=== PATIENT | female | born 1990 | race African-American/Black ===

== ENCOUNTER 2020-01-14 23:39 | Emergency (ER) | payer OTHER, SELFPAY ==
[2020-01-14 23:51] VITALS: BP 110/78; PULSE 68; RESP 17; TEMP 36.3; O2SAT 99
--- NOTE | 2020-01-14 23:55 | ED.URI ---
HPI - URI/Sore Throat General Chief Complaint: Upper Respiratory Infection Stated Complaint: Fatigued, cold sx Time Seen by Provider: 01/14/20 23:50 Source: patient and RN notes reviewed Mode of arrival: ambulatory Limitations: no limitations History of Present Illness HPI Narrative: A 29 y/o female presents to the ED with nasal congestion for the past week. She states that she went to [facility] in [place] last week and ever since has been having worsening nasal congestion and fatigue. She notes that her kid has also had a cough and wheezes, so she decided to come to the ED with him. She denies any fevers, sore throat, ear ache, SOB, cough, N/V/D, or ABD pain. MD elicited complaint: nasal congestion Onset (ago): week(s) (1) Consistency: progressively worsening Context: sick contacts Associated symptoms: other (fatigue) Related Data Allergies Allergy/AdvReac Type Severity Reaction Status Date / Time BLUE CHEESE Allergy Mild Rash Uncoded 11/18/19 18:46 Review of Systems Review of Systems: Narrative: CONSTITUTIONAL: Denies fevers. Reports fatigue. ENT: Denies a sore throat or ear ache. Reports nasal congestion. RESPIRATORY: Denies cough or dyspnea. GASTROINTESTINAL: Denies abdominal pain, nausea, vomiting, or diarrhea. All systems reviewed & are unremarkable except as noted in HPI and below PMFSH Past Medical History Medical History Migraines Surgical History Surgical History History of hip surgery rt hip surgery History of primary section Social History Social History Smoking status: Never smoker Alcohol intake: never Substance use: never Gender identity (if verbalized by the patient): Female Exam Narrative: Exam Narrative: GENERAL: Well-appearing, well-nourished, and in no acute distress. HEAD: Normocephalic, atraumatic. EYES: PERRLA and EOMI. ENT: Nares clear, no rhinorrhea or epistaxis. Mucous membranes moist. NECK: Supple. CHEST: Clear to auscultation. No respiratory distress. HEART: Regular rate and rhythm. No murmur heard. Normal peripheral pulses. ABDOMEN: Soft, nontender, nondistended, normal active bowel sounds. EXTREMITIES: Normal range of motion. No edema. SKIN: Warm, dry, no rash. NEURO: No focal deficits. Alert and oriented X3. Course Course Emergency Course: Patient present with evidence of what is likely viral sinusitis. No fever, shortness of breath, no cough, ear pain or sore throat. Influenza is negative. Laboratory results are not indicated with this. No imaging as patient has no cough or dyspnea. Advised patient symptomatic care, Flonase, [id number] medications. She was then discharged home in stable condition. Vital Signs Vital signs: Vital Signs Temperature 36.3 C L 01/14/20 23:51 Pulse Rate 68 01/14/20 23:51 Respiratory Rate 17 01/14/20 23:51 Blood Pressure 110/78 01/14/20 23:51 Pulse Oximetry 99 01/14/20 23:51 Temperature 36.3 C L 01/14/20 23:51 Pulse Rate 68 01/14/20 23:51 Respiratory Rate 17 01/14/20 23:51 Blood Pressure 110/78 01/14/20 23:51 Pulse Oximetry 98 01/15/20 00:12 MDM - URI/Sore Throat Lab Data Labs: Influenza A Screen Negative Reference Range: Negative Influenza B Screen Negative Reference Range: Negative Discharge Plan Discharge Clinical Impression: Upper respiratory infection Qualifiers: URI type: unspecified viral URI Qualified Code(s): J06.9 - Acute upper respiratory infection, unspecified Patient Disposition: Home, Self-Care Condition: Stable Instructions: Sinusitis (ED), Viral Syndrome (ED) Additional Instructions: Follow up with your primary care physician by phone today to set up for reevaluation in the next 7 days. Go to ER for worsening pain, nausea/vomiting, fever/chills, worsening bleeding, chest pain, shortn
[2020-01-15 00:12] VITALS: O2SAT 98
[2020-01-15 00:48] VITALS: BP 118/88; PULSE 88; RESP 14; O2SAT 98
== END 2020-01-15 00:48 | disposition home or self-care (01) ==
PROVIDERS: Emergency Provider Emergency Medicine
DX: J06.9 Acute upper respiratory infection, unspecified (principal)
CPT/HCPCS: 87804; 99283

== ENCOUNTER 2020-01-16 14:44 | Emergency (ER) | payer OTHER, SELFPAY ==
--- NOTE | ~2020-01-16 | XR_ITS ---
EXAMINATION: XR chest 2V DATE: 01/16/2020 15:21 INDICATION: Shortness of breath TECHNIQUE: Frontal and lateral views of the chest are obtained COMPARISON: None available FINDINGS: The lungs are free of acute opacities. There is no pleural effusion or pneumothorax. The ca rdiomediastinal silhouette is normal. The visualized bones and soft tissues are unremarkable. IMPRESSION: 1. No acute cardiopulmonary abnormality. Reviewed, dictated and finalized at location A.
[2020-01-16 14:46] VITALS: BP 114/74; PULSE 61; RESP 16; TEMP 36.2; O2SAT 98
--- NOTE | 2020-01-16 15:04 | ED.HA ---
HPI - Headache General Chief Complaint: Headache Stated Complaint: headache Time Seen by Provider: 01/16/20 15:03 Source: patient Mode of arrival: ambulatory Limitations: no limitations History of Present Illness HPI Narrative: A 29 y/o female presents to the ED with c/o right sided MENDIETA. Pt states that the MENDIETA started on 01/14/20 and she was evaluated at [place] [facility]. She reports feeling jitty, congestion, and chest tightness, but denies fever, chills, vomiting, numbness, tingling, visual changes, hearing changes, and sweats. At her ED visit she was given nasal spray and Tylenol, but adds that it did not alleviate any of her symptoms. Her son is sick with a cough, but she denies any recent travel. She has no other complaints at this time. MD elicited complaint: headache (right sided) Onset (ago): day(s) (2) Location: right Relieving factors: nothing Associated symptoms: chest pain (tightness) and other (jitty, congestion) Related Data Allergies Allergy/AdvReac Type Severity Reaction Status Date / Time BLUE CHEESE Allergy Mild Rash Uncoded 01/16/20 14:49 Review of Systems Review of Systems: All systems reviewed & are unremarkable except as noted in HPI and below Constitutional: Constitutional: Denies chills and Denies fever(s) Eyes: Eyes: Denies change in vision ENT: Reports nasal congestion and Denies other (Hearing changes) Cardiovascular: Cardiovascular: Reports chest pain (Tightness) and Denies other (Sweats) Gastrointestinal: Gastrointestinal: Denies vomiting Neurologic: Reports headache(s) (right sided), Denies numbness and Denies tingling Psychiatric: Psychiatric: Reports other (Jittery) PMFSH Past Medical History Medical History Migraines Surgical History Surgical History History of hip surgery rt hip surgery History of primary section Social History Social History Smoking status: Never smoker Alcohol intake: never Substance use: never Gender identity (if verbalized by the patient): Female Exam Narrative: Exam Narrative: GENERAL: Well-appearing, well-nourished, and in no acute distress. HEAD: Normocephalic, atraumatic. ENT: Mucous membranes moist. No pharyngeal erythema or tonsillar exudate. TM's normal bilaterally. NECK: Supple. CHEST: Clear to auscultation. No respiratory distress. HEART: Regular rate and rhythm. Normal peripheral pulses. EXTREMITIES: Normal range of motion. No edema. NEURO: Alert and oriented x3. Course Course Emergency Course: X-ray normal. Headache resolved with Toradol. Discharge home. Vital Signs Vital signs: Vital Signs Temperature 97.1 F L 01/16/20 14:46 Pulse Rate 61 01/16/20 14:46 Respiratory Rate 16 01/16/20 14:46 Blood Pressure 114/74 01/16/20 14:46 Pulse Oximetry 98 01/16/20 14:46 Temperature 97.1 F L 01/16/20 16:05 Pulse Rate 61 01/16/20 14:46 Respiratory Rate 16 01/16/20 14:46 Blood Pressure 114/74 01/16/20 14:46 Pulse Oximetry 98 01/16/20 14:46 MDM - Headache Lab Data Labs: UCG Bedside Result Negative Reference Range: Negative Imaging Data Radiologist's impression: ITS Impressions Chest X-Ray 01/16/20 15:37 IMPRESSION: 1. No acute cardiopulmonary abnormality. Discharge Plan Discharge Clinical Impression: Acute viral syndrome Headache Qualifiers: Headache type: unspecified Headache chronicity pattern: unspecified pattern Intractability: not intractable Qualified Code(s): R51 - Headache Patient Disposition: Home, Self-Care Condition: Stable Instructions: Acute Headache (ED) Additional Instructions: Return to the ER if you have fever over 101F, you cannot keep down food/water, you lose consciousness, you cannot breathe, or you have other concerns. Take tylenol as needed for headache. Presc
[2020-01-16] MEDS: KETOROLAC (*BKC) 60 MG/2 ML VIAL IM (15:24)
--- NOTE | 2020-01-16 15:43 | ECG_ITS ---
Measurements Intervals [place] Rate: 60 P: 38 HI: 163 QRS: 15 QRSD: 92 T: 28 QT: 402 QTc: 404 Interpretive Statements SINUS RHYTHM BORDERLINE T WAVE ABNORMALITY- ANTERIOR LEADS BASELINE ARTIFACT- I, II, III, AVR, AVL, AVF BORDERLINE ECG Electronically Signed On 01-17-2020 7:54:13 CDT by Ovidio Tran D.O.
[2020-01-16 16:05] VITALS: TEMP 36.2
== END 2020-01-16 16:46 | disposition home or self-care (01) ==
LOC: ANHED 16:13
PROVIDERS: Emergency Provider Emergency Medicine
DX: B34.9 Viral infection, unspecified (principal); R51 Headache
CPT/HCPCS: 71046; 81025; 93005; 96372; 99283; J1885

== ENCOUNTER 2021-07-10 16:13 | Emergency (ER) | payer OTHER, SELFPAY ==
--- NOTE | ~2021-07-10 | XR_ITS ---
EXAMINATION: XR chest 2V DATE: 07/10/2021 16:52 INDICATION: Left-sided chest pain TECHNIQUE: PA and lateral views of the chest are obtained. COMPARISON: 01/16/2020 FINDINGS: The lungs are free of acute opacities. There is no pleural effusion or pneumothorax. The ca rdiomediastinal silhouette is normal. The visualized bones and soft tissues are unremarkable. IMPRESSION: 1. No acute cardiopulmonary abnormality. Reviewed, dictated and finalized at location A.
--- NOTE | 2021-07-10 16:15 | ECG_ITS ---
Measurements Intervals [place] Rate: 79 P: 45 MN: 147 QRS: 12 QRSD: 101 T: 28 QT: 372 QTc: 428 Interpretive Statements SINUS RHYTHM BASELINE WANDER- I, II, III, V5-V6 NORMAL ECG Electronically Signed On 07-10-2021 16:59:01 CDT by Ovidio Tran D.O.
[2021-07-10 16:21] VITALS: BP 133/71; PULSE 85; RESP 18; TEMP 36.6; O2SAT 100
[2021-07-10 16:47] LABS: Basophils Percent Auto 0.7 % (0.2-1.2); Eosinophils Absolute Auto 0.2 K/mm3 (0-0.3); Eosinophils Percent Auto 3.9 % (0-4.4); Hematocrit 36.2 % (37.0-47.0); Hemoglobin 11.3 g/dL (12.0-15.0); Immature Granulocyte Absolute 0.01 K/mm3 (0.00-0.031); Immature Granulocyte Percent A 0.2 % (0-0.5); Lymphocytes Absolute Auto 2.29 K/mm3 (0.9-3.2); Lymphocytes Percent Auto 37.7 % (18.3-44.2); Mean Corpuscular HGB Conc 31.2 g/dl (32-36); Mean Corpuscular Hemoglobin 27.2 pg (26-34); Mean Platelet Volume 10.6 fl (7.4-10.4); Monocytes Absolute Auto 0.4 K/mm3 (0.1-0.6); Monocytes Percent Auto 6.7 % (2.6-8.5); Neutrophils Absolute Auto 3.1 K/mm3 (1.3-6.7); Neutrophils Percent Auto 50.8 % (45.5-73.1); Platelet Count Result 371 k/mm3 (150-375); Red Blood Count 4.16 M/mm3 (4.2-5.4); Red Cell Distribution Width 14.5 % (11.5-14.5); White Blood Count 6.1 K/mm3 (4.5-10.0)
[2021-07-10 16:55] LABS: Anion Gap 11 mmol/L (8-16); Blood Urea Nitrogen 12 mg/dL (7-17); Carbon Dioxide 24 mmol/L (22-30); Chloride 103 mmol/L (98-107); Estimated CRCL calculation 64 ml/min; Estimated Glomerular Filt Rate > 60; Glucose 120 mg/dL (65-110); Potassium 4.1 mmol/L (3.4-5.0); Sodium 138 mmol/L (137-145)
[2021-07-10 17:03] LABS: Partial Thromboplastin Time 48.7 SECONDS (22.3-36.8)
[2021-07-10 17:10] LABS: INR 0.9; Prothrombin Time 11.7 Seconds (11.1-14.7)
[2021-07-10 17:48] LABS: Troponin I < 0.012 ng/mL (0.000-0.034)
--- NOTE | 2021-07-10 18:21 | ED.CHESTPAIN ---
HPI - Chest Pain General Chief Complaint: Chest Pain Stated Complaint: chest and left arm pain Time Seen by Provider: 07/10/21 17:52 Source: patient Mode of arrival: ambulatory Limitations: no limitations History of Present Illness HPI narrative: This is a 30 year old female that presents to the ER for left sided chest pain present over the last 4 days. Pain radiates into her left shoulder and arm. No known injury or trauma. Reports the pain is worse with movement and relieved with rest. She has not taken any pain medication for this. Denies fever, cough, shortness of breath, lower extremity edema, decreased ROM or numbness. Related Data Allergies Allergy/AdvReac Type Severity Reaction Status Date / Time BLUE CHEESE Allergy Mild Rash Uncoded 01/16/20 14:49 Review of Systems Review of Systems: CONSTITUTIONAL: Denies fever CARDIOVASCULAR: Reports chest pain,. Denies edema. RESPIRATORY: Denies cough or dyspnea. MUSCULOSKELETAL: Reports joint pain, and myalgia. NEUROLOGIC: Denies numbness, or weakness. All systems reviewed & are unremarkable except as noted in HPI and below PMFSH Past Medical History Medical History (Updated 07/10/21 @ 19:31 by Alysia Elliott PA-C) Migraines Surgical History Surgical History History of hip surgery rt hip surgery History of primary section Social History Social History Smoking status: Never smoker Alcohol intake: never Substance use: never Gender identity (if verbalized by the patient): Female Exam Narrative: GENERAL: Well-appearing, obese, and in no acute distress. HEAD: Normocephalic, atraumatic. EYES: EOMI. CHEST: Clear to auscultation. No respiratory distress. No wheezes rales or rhonchi. Tender palpation of the left, upper anterior chest wall HEART: Regular rate and rhythm. No murmur heard. Normal peripheral pulses. EXTREMITIES: Normal range of motion. No edema. Pain with active range of motion in the left shoulder SKIN: Warm, dry, no rash. NEURO: No focal deficits. Alert and oriented x3. PSYCH: Normal mood and affect Course Vital Signs Vital signs: Vital Signs Temperature 97.9 F 07/10/21 16: Pulse Rate 85 07/10/21 16:21 Respiratory Rate 18 07/10/21 16:21 Blood Pressure 133/71 07/10/21 16:21 Pulse Oximetry 100 07/10/21 16:21 Temperature 97.9 F 07/10/21 16:21 Pulse Rate 85 07/10/21 16:21 Respiratory Rate 18 07/10/21 16:21 Blood Pressure 133/71 07/10/21 16:21 Pulse Oximetry 100 07/10/21 16:21 MDM - Chest Pain MDM Narrative Medical decision making narrative: Patient presents the emergency department for left-sided chest pain radiating into the arm. Pain is reproducible with palpation and movement of the left shoulder. It does seem to be more musculoskeletal nature. Her vitals are stable. CBC and metabolic panel without concerning findings. EKG is without acute changes and baseline troponin is negative. Chest x-ray without acute cardiopulmonary abnormality. Her heart score is a 1. Once again pain does seem to more musculoskeletal in nature. She reports relief with Toradol and Valium. She was instructed to follow-up with primary care doctor. She was given warnings to return to the ER Lab Data Attestation: I reviewed the patient's lab results. Result diagrams: 07/10/21 16:23 07/10/21 16:23 Labs: Lab Results 07/10/21 07/10/21 07/10/21 Range/Units 16:23 16:23 16:23 WBC 6.1 (4.5-10.0) K/mm3 RBC 4.16 L (4.2-5.4) M/mm3 Hgb 11.3 L (12.0-15.0) g/dL Hct 36.2 L (37.0-47.0) % MCV 87.0 (80-100) fl MCH 27.2 (26-34) pg MCHC 31.2 L (32-36) g/dl RDW 14.5 (11.5-14.5) % Plt Count 371 (150-375) k/mm3 MPV 10.6 H (7.4-10.4) fl Immature Gran % (Auto) 0.2 (0-0.5) % Neut % (Auto) 50.8 (45.5-73.1) % Lymph % (Auto) 37.7 (18.3-44.2)
[2021-07-10] MEDS: diazePAM INJ (*CRX) 10 MG/2 ML SYRINGE 5 MG IV PUSH (18:35)
[2021-07-10] MEDS: KETOROLAC 30 MG/ML VIAL (*BKC) IV PUSH (18:35)
[2021-07-10 19:40] VITALS: BP 140/78; PULSE 71; RESP 18; O2SAT 98
[2021-07-10 20:02] LABS: Troponin I < 0.012 ng/mL (0.000-0.034)
== END 2021-07-10 19:42 | disposition home or self-care (01) ==
PROVIDERS: Emergency Medicine; Emergency Provider Family Medicine
DX: M25.512 Pain in left shoulder (principal)
CPT/HCPCS: 36415; 71046; 80048; 84484; 85025; 85610; 85730; 93005; 96374; 96375; 99284; A4565; J1885; J3360

== ENCOUNTER 2022-06-08 16:20 | Emergency (ER) | payer OTHER, SELFPAY ==
[2022-06-08 16:21] VITALS: BP 125/72; PULSE 73; RESP 16; TEMP 36.1; O2SAT 99
--- NOTE | 2022-06-08 16:40 | ED.SKABFB ---
HPI - Skin/Abscess/Foreign Bdy General Chief complaint: Skin/Abscess/Foreign Body Stated complaint: rash to face Time Seen by Provider: 06/08/22 16:28 History of Present Illness HPI narrative: Patient is a 31-year-old female here for evaluation of several bumps to her chin that she noticed 2 days ago. The bumps were itchy at first, but now they are not. She has not tried any medication on the bumps. Patient states that the bumps came on after performing oral sex on her single male partner. She presents today because she is concerned that the lesions on her chin are related to an STI. She is not having any vaginal discharge, vaginal lesions, dysuria, urgency or burning. Patient's partner denied any known STI. Related Data Allergies Allergy/AdvReac Type Severity Reaction Status Date / Time BLUE CHEESE Allergy Mild Rash Uncoded 06/08/22 16:21 Review of Systems Review of Systems: Gen.: Denies fevers or chills Eyes: Denies eye pain or visual change ENT: Denies congestion Respiratory: Denies shortness of breath or cough CV: Denies chest pain or palpitations GI: Denies abdominal pain nausea, emesis or diarrhea : denies burning, urgency, frequency or hematuria Musculoskeletal: Denies back pain or muscle pain Neuro: Denies numbness, tingling, weakness or focal weakness Skin: Reports chin rash Except as documented, all other systems reviewed and negative PMFSH Past Medical History Medical History (Updated 06/08/22 @ 17:29 by Alysia Pope PA-C) Migraines Surgical History Surgical History History of hip surgery rt hip surgery History of primary section Social History Social History Smoking status: Never smoker Alcohol intake: never Substance use: never Gender identity (if verbalized by the patient): Female Exam Narrative: APPEARANCE: Well appearing, no pain in distress, well-nourished. Head: Normocephalic and atraumatic. EYES: PERRLA/EOMI, conjunctivae clear NOSE: No nasal drainage EARS: External ear normal in appearance THROAT: Oropharynx is clear. Mucous membranes are moist. No lesions or erythema to oropharynx. NECK: Supple. No adenopathy, no masses. RESPIRATORY: Airway patent, respirations nonlabored. Clear to auscultation bilaterally, no rales, rhonchi, wheezing. CARDIOVASCULAR: Regular rate and rhythm without murmurs, rubs, or gallops. ABDOMINAL: Normoactive bowel sounds. Soft, nontender, nondistended. No rebound tenderness or guarding. : no vaginal discharge noted MUSCULOSKELETAL: Extremities are warm and well-perfused. Moves all extremities well. No edema. NEURO: Normal speech. No focal neurologic deficits. SKIN: Patient has 10-15 pinpoint papules to chin, no underlying fluctuance or induration, no drainage noted, no surrounding erythema PSYCHIATRIC: Normal affect/mood. Course Vital Signs Vital signs: Vital Signs Temperature 96.9 F L 06/08/22 16:21 Pulse Rate 73 06/08/22 16:21 Respiratory Rate 16 06/08/22 16:21 Blood Pressure 125/72 06/08/22 16:21 Pulse Oximetry 99 06/08/22 16:21 Oxygen Delivery Room Air 06/08/22 16:21 Temperature 96.9 F L 06/08/22 16:21 Pulse Rate 73 06/08/22 16:21 Respiratory Rate 16 06/08/22 16:21 Blood Pressure 125/72 06/08/22 16:21 Pulse Oximetry 99 06/08/22 16:21 Oxygen Delivery Room Air 06/08/22 16:21 MDM - Skin/Abscess/Foreign Bdy MDM Narrative Medical decision making narrative: 31-year-old female here for evaluation of what appears to be acne to her chin. She is concerned she has an STI. Explained to patient that her symptoms today are very unlikely to be an STI, no throat lesions noted, but she is requesting testing. Will obtain swabs for gonorrhea, chlamydia and trich, explained that patient will need to follow up on these studies in the portal. No vaginal discharge on exam; doubt STI so will
== END 2022-06-08 17:36 | disposition home or self-care (01) ==
PROVIDERS: Physician Assistant; Emergency Provider General Practice
DX: L25.9 Unspecified contact dermatitis, unspecified cause (principal)
CPT/HCPCS: 87491; 87591; 87808; 99284

== ENCOUNTER 2022-07-03 16:19 | Emergency (ER) | payer OTHER, SELFPAY ==
--- NOTE | ~2022-07-03 | CT_ITS ---
EXAMINATION: CT abdomen pelvis w con DATE: 07/03/2022 18:48 INDICATION: Right flank pain. Right lower quadrant abdominal pain. TECHNIQUE: Computed tomography (CT) of the abdomen and pelvis was performed with 100 mL Omnipaque 350 intravenous contrast. Automated exposure control and iterative reconstruction technique were employe d. The dose-length product was 1577.35 mGy-cm. COMPARISON: None. FINDINGS: The visualized portions of the lung bases are clear without pneumonia or pleural effusion. The heart size is normal. No pericardial effusion. The liver, gallbladder, spleen, pancreas, adrenal glands, and kidneys are normal. There are no dilated loops of bowel. The appendix is normal. There is a supraumbilical ventral hernia containing fat with fat stranding. There are no pathologically enlar ged lymph nodes. There is no free intraperitoneal fluid. There is a left-sided tubal ligation clip in expected position. The right-sided tube ligation clip is dislodged. There is internal fixation of pr oximal right femur. The spine is unremarkable. IMPRESSION: 1. Supraumbilical ventral hernia containing fat. Fat stranding may be inflammation or scarring. Reviewed, dictated and finalized at location E. IMPRESSION: 1. Supraumbilical ventral hernia containing fat. Fat stranding may be inflammat ion or scarring.
[2022-07-03 16:45] VITALS: BP 134/80; PULSE 70; RESP 16; TEMP 36.7; O2SAT 100
[2022-07-03 17:01] LABS: Basophils Absolute Auto 0.1 K/mm3 (0.0-0.1); Basophils Percent Auto 0.7 % (0.2-1.2); Eosinophils Absolute Auto 0.2 K/mm3 (0-0.3); Eosinophils Percent Auto 2.6 % (0-4.4); Hematocrit 35.3 % (37.0-47.0); Hemoglobin 11.3 g/dL (12.0-15.0); Immature Granulocyte Absolute 0.01 K/mm3 (0.00-0.031); Immature Granulocyte Percent A 0.1 % (0-0.5); Lymphocytes Absolute Auto 2.78 K/mm3 (0.9-3.2); Lymphocytes Percent Auto 34.4 % (18.3-44.2); Mean Corpuscular Volume 87.6 fl (80-100); Mean Platelet Volume 11.6 fl (7.4-10.4); Monocytes Absolute Auto 0.5 K/mm3 (0.1-0.6); Monocytes Percent Auto 5.6 % (2.6-8.5); Neutrophils Absolute Auto 4.6 K/mm3 (1.3-6.7); Neutrophils Percent Auto 56.6 % (45.5-73.1); Platelet Count Result 314 k/mm3 (150-375); Red Blood Count 4.03 M/mm3 (4.2-5.4); Red Cell Distribution Width 14.1 % (11.5-14.5); White Blood Count 8.1 K/mm3 (4.5-10.0)
[2022-07-03 17:02] LABS: Appearance Urine Clear (Clear); Bilirubin Urine Negative (Negative); Blood Urine Negative (Negative); Color Urine Yellow (Yellow); Glucose Urine UA Negative (Negative); Ketones Urine Negative (Negative); Leukocyte Esterase Ur Negative LEU/UL (Negative); Nitrate Urine Negative (Negative); Protein Urine Negative (Negative)
[2022-07-03 17:04] LABS: Add Urine Microscopic? NO
[2022-07-03 17:12] LABS: Alanine Aminotransferase 14 U/L (6-35); Albumin Level 3.9 g/dL (3.5-5.1); Alkaline Phosphatase 73 U/L (38-126); Anion Gap 14 mmol/L (8-16); Aspartate Amino Transferase 26 U/L (14-36); Bilirubin,Total 0.1 mg/dL (0.2-1.3); Blood Urea Nitrogen 9 mg/dL (7-17); Calcium 8.5 mg/dL (8.4-10.2); Carbon Dioxide 25 mmol/L (22-30); Chloride 101 mmol/L (98-107); Estimated CRCL calculation 84 ml/min; Estimated Glomerular Filt Rate > 60; Glucose 106 mg/dL (65-110); Potassium 4.2 mmol/L (3.4-5.0); Sodium 140 mmol/L (137-145)
--- NOTE | 2022-07-03 18:02 | ED.ABDPAIN ---
HPI - Abdominal Pain General Chief Complaint: Abdominal Pain Stated Complaint: cramps on right side Time Seen by Provider: 07/03/22 17:36 Source: patient Mode of arrival: ambulatory Limitations: no limitations History of Present Illness HPI narrative: This is a 31-year-old female that presents to the emergency department for right lower quadrant pain. Intermittent over the last week. No associated symptoms. Also reports a contact with somebody who tested positive for an STD. Reportedly she thinks it is syphilis. Would like tested. Denies fever, vomiting, dysuria, rashes, or abnormal vaginal discharge. Related Data Allergies Allergy/AdvReac Type Severity Reaction Status Date / Time BLUE CHEESE Allergy Mild Rash Uncoded 06/08/22 16:21 Review of Systems Review of Systems: CONSTITUTIONAL: Denies fever GASTROINTESTINAL: Reports abdominal pain. Denies nausea, vomiting, or diarrhea. GENITOURINARY: Denies dysuria or hematuria. SKIN: Denies rash All systems reviewed & are unremarkable except as noted in HPI and below PMFSH Past Medical History Medical History (Updated 07/03/22 @ 21:05 by Alysia Elliott PA-C) Migraines Surgical History Surgical History History of hip surgery rt hip surgery History of primary section Social History Social History Smoking status: Never smoker Alcohol intake: never Substance use: never Gender identity (if verbalized by the patient): Female Exam Narrative: GENERAL: Well-appearing, well-nourished, and in no acute distress. HEAD: Normocephalic, atraumatic. EYES: EOMI. CHEST: Clear to auscultation. No respiratory distress. No wheezes rales or rhonchi HEART: Regular rate and rhythm. No murmur heard. Normal peripheral pulses. ABDOMEN: Soft, nondistended, normal active bowel sounds. Mild tenderness to palpation in the right lower quadrant, without guarding. No CVA tenderness EXTREMITIES: Normal range of motion. No edema. SKIN: Warm, dry, no rash. NEURO: No focal deficits. Alert and oriented x3. PSYCH: Normal mood and affect PELVIC: Normal external genitalia. Exam limited due to body habitus, what I am able to see of the cervix appears normal. No abnormal cervical discharge. Course Vital Signs Vital signs: Vital Signs Temperature 98.0 F 07/03/22 16:45 Pulse Rate 70 07/03/22 16:45 Respiratory Rate 16 07/03/22 16:45 Blood Pressure 134/80 07/03/22 16:45 Pulse Oximetry 100 07/03/22 16:45 Temperature 98.0 F 07/03/22 16:45 Pulse Rate 70 07/03/22 16:45 Respiratory Rate 16 07/03/22 16:45 Blood Pressure 134/80 07/03/22 16:45 Pulse Oximetry 100 07/03/22 16:45 MDM - Abdominal Pain MDM Narrative Medical decision making narrative: Patient presents to the ER for right lower quadrant abdominal pain ongoing over the last week. Also reporting concern for possible exposure to STD and would like tested. Patient is afebrile and nontoxic-appearing. Her vitals are stable. CBC is without leukocytosis. Does show normocytic anemia with hemoglobin of 11.3. Metabolic panel without concerning findings. UA without evidence of infection. Bedside test is negative. Trichomonas is negative. Chlamydia, gonorrhea and general genital culture were sent. Patient specifically wanted to be tested for syphilis. RPR was sent. She was instructed that she will need a confirmatory test if this comes back positive. CT scan of the abdomen and pelvis without concerning findings for right lower quadrant pain. Patient instructed to have follow-up for further results of testing. She was given warnings to return to the ER Lab Data Attestation: I reviewed the patient's lab results. Result diagrams: 07/03/22 16:53 07/03/22 16:53 Labs: Lab Results 07/03/22 07/03/22 07/03/22 Range/Units 16:53 16:53 16:53 WBC 8.1
[2022-07-04 08:14] LABS: Rapid Plasma Reagin Reactive (NonReactive)
[2022-07-06 11:37] LABS: Treponema pallidum Ab FTA ABS Reactive (Nonreactive)
== END 2022-07-03 21:19 | disposition home or self-care (01) ==
PROVIDERS: Emergency Medicine; Physician Assistant; Emergency Provider Emergency Medicine
DX: R10.31 Right lower quadrant pain (principal); Z11.3 Encounter for screening for infections with a predominantly sexual mode of transmission
CPT/HCPCS: 36415; 74177; 80053; 81003; 81025; 85025; 86592; 86780; 87070; 87491; 87591; 87808; 99284; Q9967

== ENCOUNTER 2022-09-02 09:46 | Emergency (ER) | payer OTHER, SELFPAY ==
[2022-09-02 09:48] VITALS: BP 111/73; PULSE 97; RESP 18; TEMP 36.8; O2SAT 98
--- NOTE | 2022-09-02 13:03 | ED.FEMALEGU ---
HPI - Female Genitourinary General Chief complaint: Urogenital-Female <JOANA Lozano Last Filed: 09/02/22 19:14> Stated complaint: swollen labia <JOANA Lozano Last Filed: 09/02/22 19:14> Time Seen by Provider: 09/02/22 11:31 <JOANA Lozano Last Filed: 09/02/22 19:14> Source: patient <JOANA Lozano Last Filed: 09/02/22 19:14> Mode of arrival: ambulatory <JOANA Lozano Last Filed: 09/02/22 19:14> Limitations: no limitations <JOANA Lozano Last Filed: 09/02/22 19:14> History of Present Illness HPI Narrative: Patient is a 32-year-old female who presents the ED with report of left labial swelling. Patient reports she first noticed the swelling yesterday after shaving her genital region, which has become larger since. It is slightly uncomfortable when she tries to sit or wear tight underwear. Denies any vaginal discharge, abnormal bleeding, dysuria, hematuria, fevers, nausea, vomiting, abdominal pain, concern for STDs. <JOANA Lozano Last Filed: 09/02/22 19:14> Related Data Allergies/Adverse reactions: Allergies Allergy/AdvReac Type Severity Reaction Status Date / Time BLUE CHEESE Allergy Mild Rash Uncoded 09/02/22 11:15 <JOANA Lozano Last Filed: 09/02/22 19:14> Review of Systems Review of Systems: CONSTITUTIONAL: Denies fever, chills, or sweats. GASTROINTESTINAL: Denies abdominal pain, nausea, vomiting. GENITOURINARY: Denies vaginal bleeding, vaginal discharge, dysuria or hematuria. SKIN: Reports swelling of left labia. <JOANA Lozano Last Filed: 09/02/22 19:14> All systems reviewed & are unremarkable except as noted in HPI and below <JOANA Lozano Last Filed: 09/02/22 19:14> [facility] Past Medical History Medical History: Medical History (Updated 09/03/22 @ 00:00 by Mary Alexander) Migraines <Valentina Pinzon PA-C - Last Filed: 09/02/22 19:14> Surgical History Surgical History: Surgical History History of hip surgery rt hip surgery History of primary section <Valentina Pinzon PA-C - Last Filed: 09/02/22 19:14> Social History Social History: Social History Smoking status: Never smoker Alcohol intake: never Substance use: never Gender identity (if verbalized by the patient): Female <Valentina Pinzon PA-C - Last Filed: 09/02/22 19:14> Exam Narrative: GENERAL: Well appearing, obese, non-toxic, in no acute distress. HEAD: Normocephalic, atraumatic. NECK: Supple. No adenopathy, no masses. RESPIRATORY: Airway patent, respirations nonlabored. Clear to auscultation bilaterally, no rales, rhonchi, wheezing. CARDIOVASCULAR: Regular rate and rhythm without murmurs, rubs, or gallops. Peripheral pulses 2+ and equal bilaterally. ABDOMINAL: Soft, nontender, nondistended, no hepatosplenomegaly. Normoactive BS. PELVIC: Approx. 7X3cm area of swelling/fluctuance to upper left labia minora, tender to palpation. No inflammation of Bartholin's glands. No abnormal discharge. MUSCULOSKELETAL: Moves all extremities. Strength/ROM intact without gross deformities. SKIN: Warm, dry, normal color. No rashes. NEURO: A&O X3. Speech clear. Cranial nerves II-XII grossly intact. Steady gait. No ataxic movements. PSYCHIATRIC: Appropriate mood and affect. Normal interaction. <Valentina Pinzon PA-C - Last Filed: 09/02/22 19:14> Course SHELL MACHINE OPERATOR/PA Physician Supervision For this patient encounter, I reviewed the SHELL MACHINE OPERATOR or PA documentation, treatment plan, and medical decision making and I had [id number] time with this patient. This is a 32-year-old female who is presenting with a left labial abscess. Patient reports increasing swelling of her left labia for the past 2 days. Lelia marquezve
[2022-09-02 13:32] LABS: Appearance Urine Clear (Clear); Bilirubin Urine Negative (Negative); Blood Urine Negative (Negative); Color Urine Yellow (Yellow); Glucose Urine UA Negative (Negative); Ketones Urine Trace mg/dL (Negative); Leukocyte Esterase Ur Negative LEU/UL (Negative); Nitrate Urine Negative (Negative); Protein Urine 1+ mg/dL (Negative); Specific Grav Ur >= 1.030 (1.001-1.035)
[2022-09-02 13:46] LABS: Mucus Urine Heavy /lpf; RBC Urine 0-2 /hpf (0-2); Squamous Epithelial Cell Urine Many /hpf (Few)
[2022-09-02 13:55] LABS: Add Urine Microscopic? YES
[2022-09-02] MEDS: SULFAMETHOXAZOLE/TRIMETHOPRIM 800/160 MG DS TABLET 1 TAB PO (16:15)
[2022-09-02 16:24] VITALS: BP 112/76; PULSE 75; RESP 18; O2SAT 98
== END 2022-09-02 16:26 | disposition home or self-care (01) ==
PROVIDERS: Physician Assistant; Emergency Provider Emergency Medicine
DX: N76.4 Abscess of vulva (principal)
CPT/HCPCS: 56405; 81001; 81025; 87070; 87086; 87088; 87147; 87205; 99283; A9270

== ENCOUNTER 2023-11-13 18:44 | Emergency (ER) | payer OTHER, SELFPAY ==
[2023-11-13 18:48] VITALS: BP 150/100; PULSE 60; RESP 16; TEMP 36.4; O2SAT 99
== END 2023-11-14 00:47 | disposition left against medical advice (07) ==
DX: N76.4 Abscess of vulva (principal)
CPT/HCPCS: 99199

== ENCOUNTER 2023-11-14 08:58 | Emergency (ER) | payer OTHER, SELFPAY ==
[2023-11-14 09:05] VITALS: BP 144/67; PULSE 65; RESP 16; TEMP 36.5; O2SAT 100
== END 2023-11-14 12:26 | disposition left against medical advice (07) ==
LOC: ANHED 12:26
PROVIDERS: Emergency Provider Nurse Practitioner Family
DX: R10.2 Pelvic and perineal pain (principal)
CPT/HCPCS: 99199